=== PATIENT | male | born 1960 | race Caucasian/White ===

== ENCOUNTER 2019-10-11 16:56 | Emergency (ER) | payer MEDICAID ==
[~2019-10-11] VITALS: Ht 175.3 cm; Wt 66.6 kg
[2019-10-11 17:18] VITALS: BP 136/75
== END 2019-10-11 17:43 | disposition home or self-care (01) ==
LOC: ED 17:40
DX: J34.0 Abscess, furuncle and carbuncle of nose (principal); L01.01 Non-bullous impetigo
CPT/HCPCS: 99283